=== PATIENT | male | born 1965 | race Caucasian/White ===

== ENCOUNTER 2017-05-29 19:22 | Emergency (ER) | payer OTHER ==
[2017-05-29 20:35] VITALS: BP 149/84
--- NOTE | 2017-05-29 20:49 | UC ---
Complaint Female HPI - HPI Summary HPI Summary: Patient acompanied by his , states he started having burning urination and frequency around 5:30 today. He has chills and his temperature was elevated at home. He denies any penile discharge, abdominal or back pain, PMH of urolithiasis or respiratory symptoms. - History Of Current Complaint Chief Complaint: UCGeneralIllness Stated Complaint: URINARY COMPLAINT,ACHEY Time Seen by Provider: 05/29/17 20:19 Hx Obtained From: Patient Onset/Duration: Sudden Onset, Lasting Hours Timing: Constant Severity Initially: Mild Severity Currently: Moderate Pain Intensity: 2 Character: Burning Aggravating Factor(s): Urination Alleviating Factor(s): Nothing Associated Signs And Symptoms: Positive: Fever - Allergies/Home Medications Allergies/Adverse Reactions: Allergies Allergy/AdvReac Type Severity Reaction Status Date / Time dicyclomine Allergy Dizziness Verified 05/29/17 19:35 Home Medications: Home Medications Cetirizine* [ZyrTEC 10 MG TAB*] 05/29/17 [History] Ibuprofen [Advil] 600 mg PO 05/29/17 [History] PMH/Surg Hx/FS Hx/Imm Hx Previously Healthy: Yes - Surgical History Surgical History: None - Social History Alcohol Use: Weekly Substance Use Type: None Smoking Status (MU): Never Smoked Tobacco Review of Systems Constitutional: Fever Genitourinary: Dysuria All Other Systems Reviewed And Are Negative: Yes Physical Exam Triage Information Reviewed: Yes Appearance: Pain Distress Vital Signs: Initial Vital Signs Temp 99.4 F 05/29/17 19:27 Pulse 80 05/29/17 19:27 Resp 16 05/29/17 19:27 BP 155/104 05/29/17 19:27 Pulse Ox 100 05/29/17 19:27 Vital Signs Reviewed: Yes Eyes: Positive: Conjunctiva Clear ENT: Positive: Pharynx normal Neck: Positive: Supple, Nontender, No Lymphadenopathy Respiratory: Positive: Chest non-tender, Lungs clear, Normal breath sounds, No respiratory distress Cardiovascular: Positive: RRR, No Murmur, Pulses Normal, Brisk Capillary Refill Abdomen Description: Positive: Nontender, No Organomegaly, Soft, Other: - no CVAT Bowel Sounds: Positive: Present Musculoskeletal: Positive: Strength Intact, ROM Intact Complaint Female Dx - Course Course Of Treatment: Patient with chills and mounting temperature, complaining of burning urination and frequency. Patient referred to ER for further evaluation possible DDx of upper UTI, urolithiasis. Discussed with patient who states he wants to be driven to ER by - Differential Dx/Diagnosis Provider Diagnoses: Dysuria. Fever Discharge - Sign-Out/Discharge Documenting (check all that apply): Discharge - Discharge Plan Condition: Guarded Disposition: HOME Patient Education Materials: Dysuria (ED), Fever in Adults (ED) Referrals: Cuong Spence MD [Primary Care Provider] - Additional Instructions: Patient instructed to go to [facility] for follow up care, patient refuses to go by ambulance and states he will drive himself to the ER. - Billing Disposition and Condition Condition: GUARDED Disposition: HOME
== END 2017-05-29 21:10 | disposition home or self-care (01) ==
LOC: UCEAST 19:22
DX: R30.0 Dysuria (principal); R50.9 Fever, unspecified; Z88.8 Allergy status to other drugs, medicaments and biological substances
CPT/HCPCS: 81003; 99212; G0463

== ENCOUNTER 2017-05-29 21:41 | Emergency (ER) | payer OTHER ==
[2017-05-29] MEDS ORDERED: NS 0.9% 1000 ML*IV.FLUID IV ONE (22:22)
[2017-05-29 22:57] LABS: ABS Basophils 0 10^3/ul (0-0.2); ABS Eosinophils 0.2 10^3/ul (0-0.6); ABS Lymphocytes 1.3 10^3/ul (1.0-4.8); ABS Monocytes 0.9 10^3/ul (0-0.8); ABS Neutrophils 6.3 10^3/ul (1.5-7.7); ABS Nucleated RBC 0 10^3/ul; Eosinophil % 1.8 % (0-6); Hematocrit 41 % (42-52); Hemoglobin 14.2 g/dl (14.0-18.0); Lymphocyte % 15.1 % (25-47); Mean Corpuscular HGB Conc 35 g/dl (31-36); Mean Corpuscular Hemoglobin 31 pg (27-31); Mean Corpuscular Volume 88 fL (80-94); Mean Platelet Volume 7.6 um3 (7.4-10.4); Nucleated Red Blood Cells % 0; Platelet Count 193 10^3/ul (150-450); Red Blood Count 4.64 10^6/ul (4.0-5.4); Red Cell Distribution Width 13 % (10.5-15); White Blood Count 8.6 10^3/ul (3.5-10.8)
[2017-05-29 23:02] LABS: INR 0.9 (0.77-1.02)
[2017-05-29 23:12] LABS: Urine Appearance Clear; Urine Blood Negative (Negative); Urine Color Straw; Urine Ketones Negative (Negative); Urine Protein Negative (Negative); Urine Specific Gravity 1.005 (1.010-1.030); Urine Urobilinogen Negative (Negative)
[2017-05-29 23:13] LABS: EGFR Non-African American 84.6 (>60)
[2017-05-30] MEDS ORDERED: Lidocaine 2% JELLY* 6 ML JELLY TOPICAL ONE (01:15)
[2017-05-30] MEDS ORDERED: Ciprofloxacin TAB* 500 MG PO ONE (01:18)
--- NOTE | 2017-05-30 02:22 | ED ---
Complaint/Male - History of Current Complaint Chief Complaint: EDUrogenitalProblems Time Seen by Provider: 05/29/17 23:13 Hx Obtained From: Patient Onset/Duration: Sudden Onset Timing: Constant Severity Initially: Moderate Severity Currently: Moderate Location: Suprapubic Character: Sharp Aggravating Factor(s): Voiding, Palpation Associated Signs And Symptoms: Diaphoresis, Fever - Risk Factors Testicular Torsion: Negative - Allergies/Home Medications Allergies/Adverse Reactions: Allergies Allergy/AdvReac Type Severity Reaction Status Date / Time dicyclomine Allergy Dizziness Verified 05/29/17 22:11 Home Medications: Home Medications Cholecalciferol TAB* [Vitamin D TAB*] 1,000 unit PO DAILY 05/29/17 [History Confirmed 05/29/17] Ibuprofen TAB* [Motrin TAB* 600 MG] 600 mg PO TID PRN 05/29/17 [History Confirmed 05/29/17] L.acidoph,Paracasei, B.lactis [Probiotic] 1 each PO DAILY 05/29/17 [History Confirmed 05/29/17] Multivitamins/Minerals TAB* [Theragran/minerals TAB*] 1 tab PO DAILY 05/29/17 [ History Confirmed 05/29/17] PMH/Surg Hx/FS Hx/Imm Hx Previously Healthy: Yes Musculoskeletal History: Denies: Hx Rheumatoid Arthritis, Hx Osteoporosis - Immunization History Date of Tetanus Vaccine: 2009 Date of Influenza Vaccine: utd Infectious Disease History: No Infectious Disease History: Reports: Traveled Outside the [place] in Last 30 Days - Social History Occupation: Employed Full-time Lives: With Family Alcohol Use: Weekly Substance Use Type: Reports: None Smoking Status (MU): Never Smoked Tobacco Review Of Systems Constitutional: Positive: Fever, Chills Physical Exam Vital Signs On Initial Exam: Initial Vitals Temp Pulse Resp BP Pulse Ox 98.3 F 86 16 143/84 98 05/29/17 21:50 05/29/17 21:50 05/29/17 21:50 05/29/17 21:50 05/29/17 21:50 Diagnostics - Vital Signs Vital Signs Temp Pulse Resp BP Pulse Ox 05/29/17 21:50 98.3 F 86 16 143/84 98 - Laboratory Lab Results: Lab Results 05/29/17 05/29/17 05/29/17 Range/Units 22:15 22:44 22:44 WBC 8.6 (3.5-10.8) 10^3/ul RBC 4.64 (4.0-5.4) 10^6/ul Hgb 14.2 (14.0-18.0) g/dl Hct 41 L (42-52) % MCV 88 (80-94) fL MCH 31 (27-31) pg MCHC 35 (31-36) g/dl RDW 13 (10.5-15) % Plt Count 193 (150-450) 10^3/ul MPV 7.6 (7.4-10.4) um3 Neut % (Auto) 72.5 (38-83) % Lymph % (Auto) 15.1 L (25-47) % [place] % (Auto) 10.0 H (0-7) % Eos % (Auto) 1.8 (0-6) % Baso % (Auto) 0.6 (0-2) % Absolute Neuts (auto) 6.3 (1.5-7.7) 10^3/ul Absolute Lymphs (auto) 1.3 (1.0-4.8) 10^3/ul Absolute Monos (auto) 0.9 H (0-0.8) 10^3/ul Absolute Eos (auto) 0.2 (0-0.6) 10^3/ul Absolute Basos (auto) 0 (0-0.2) 10^3/ul Absolute Nucleated RBC 0 10^3/ul Nucleated RBC % 0 INR (Anticoag Therapy) (0.77-1.02) Sodium 135 L (139-145) mmol/L Potassium 4.1 (3.5-5.0) mmol/L Chloride 100 L (101-111) mmol/L Carbon Dioxide 26 (22-32) mmol/L Anion Gap 9 (2-11) mmol/L BUN 12 (6-24) mg/dL Creatinine 0.94 (0.67-1.17) mg/dL Est GFR ( Amer) 108.8 (>60) Est GFR (Non-Af Amer) 84.6 (>60) BUN/Creatinine Ratio 12.8 (8-20) Glucose 112 H (70-100) mg/dL Lactic Acid (0.5-2.0) mmol/L Calcium 9.4 (8.6-10.3) mg/dL Total Bilirubin 0.50 (0.2-1.0) mg/dL AST 24 (13-39) U/L ALT 20 (7-52) U/L Alkaline Phosphatase 58 (34-104) U/L Troponin I 0.01 (<0.04) ng/mL C-Reactive Protein 12.42 H (< 5.00) mg/L Total Protein 7.3 (6.4-8.9) g/dL Albumin 4.2 (3.2-5.2) g/dL Globulin 3.1 (2-4) g/dL Albumin/Globulin Ratio 1.4 (1-3) Urine Color Straw Urine Appearance Clear Urine pH 7.0 (5-9) Ur Specific [place] 1.005 L (1.010-1.030) Urine Protein Negative (Negative) Urine Ketones Negative (Negative) Urine Blood Negative (Negative) Urine Nitrate Negative (Negative) Urine Bilirubin Negative (Negative) Urine Urobilinogen Negative (Negative) Ur Leukocyte Esterase Negative (Negative) Urine Glucose Negative (Negative) Urine Ascorbic Acid * A (Negative) 05/29/17 05/29/17 Range/Units 22:44 22:44 WBC (3.5-10.8) 10^3/ul RBC (4.0-5.4) 10^6/ul Hgb (14.0-18.0) g/dl Hct (42-52) % MCV (80-94) fL MCH (27-31) pg MCHC (31-36) g/dl RDW (10.5-15) % Plt Count (150-450) 10^3/ul MPV (7.4-10.4) um3 Neut % (Auto) (38-83) % Lymph % (Auto) (25-47) % [place] % (Auto) (0-7) % Eos % (Auto) (0-6) % Baso % (Auto) (0-2) % Absolute Neuts (auto) (1.5-7.7) 10^3/ul Absolute Lymphs (auto) (1.0-4.8) 10^3/ul Absolute Monos (auto) (0-0.8) 10^3/ul Absolute Eos (auto) (0-0.6) 10^3/ul Absolute Basos (auto) (0-0.2) 10^3/ul Absolute Nucleated RBC 10^3/ul Nucleated RBC % INR (Anticoag Therapy) 0.90 (0.77-1.02) Sodium (139-145) mmol/L Potassium (3.5-5.0) mmol/L Chloride (101-111) mmol/L Carbon Dioxide (22-32) mmol/L Anion Gap (2-11) mmol/L BUN (6-24) mg/dL Creatinine (0.67-1.17) mg/dL Est GFR ( Amer) (>60) Est GFR (Non-Af Amer) (>60) BUN/Creatinine Ratio (8-20) Glucose (70-100) mg/dL Lactic Acid 0.8 (0.5-2.0) mmol/L Calcium (8.6-10.3) mg/dL Total Bilirubin (0.2-1.0) mg/dL AST (13-39) U/L ALT (7-52) U/L Alkaline Phosphatase (34-104) U/L Troponin I (<0.04) ng/mL C-Reactive Protein (< 5.00) mg/L Total Protein (6.4-8.9) g/dL Albumin (3.2-5.2) g/dL Globulin (2-4) g/dL Albumin/Globulin Ratio (1-3) Urine Color Urine Appearance Urine pH (5-9) Ur Specific [place] (1.010-1.030) Urine Protein (Negative) Urine Ketones (Negative) Urine Blood (Negative) Urine Nitrate (Negative) Urine Bilirubin (Negative) Urine Urobilinogen (Negative) Ur Leukocyte Esterase (Negative) Urine Glucose (Negative) Urine Ascorbic Acid (Negative) Result Diagrams: 05/29/17 22:44 05/29/17 22:44 Lab Statement: Any lab studies that have been ordered have been reviewed, and results considered in the medical decision making process.
--- NOTE | 2017-05-30 02:28 | ED ---
Complex/Multi-Sys Presentation - HPI Summary HPI Summary: Pt. is a 52 y.o male who presents to the ER for urinary retention x 2 days. Pt. states he has a history of enlarge prostate and occasionally has difficulty starting a stream but not recently until yesterday. He also notes that today he feels chilled. States he had recent URI symptoms but they have resolved. Denies hematuria, flank pain, N/V, rectal pain. Symptoms are moderate in severity. No current modifying factors. - History Of Current Complaint Chief Complaint: EDUrogenitalProblems Time Seen by Provider: 05/29/17 23:13 Hx Obtained From: Patient Onset/Duration: Sudden Onset Timing: Constant Severity Currently: Moderate Severity Initially: Moderate Character: Pressure Associated Signs And Symptoms: Negative: Nausea, Vomiting, Diarrhea, Back Pain, Dysuria - Allergies/Home Medications Allergies/Adverse Reactions: Allergies Allergy/AdvReac Type Severity Reaction Status Date / Time dicyclomine Allergy Dizziness Verified 05/29/17 22:11 Home Medications: Home Medications Cholecalciferol TAB* [Vitamin D TAB*] 1,000 unit PO DAILY 05/29/17 [History Confirmed 05/29/17] Ibuprofen TAB* [Motrin TAB* 600 MG] 600 mg PO TID PRN 05/29/17 [History Confirmed 05/29/17] L.acidoph,Paracasei, B.lactis [Probiotic] 1 each PO DAILY 05/29/17 [History Confirmed 05/29/17] Multivitamins/Minerals TAB* [Theragran/minerals TAB*] 1 tab PO DAILY 05/29/17 [ History Confirmed 05/29/17] PMH/Surg Hx/FS Hx/Imm Hx Previously Healthy: Yes Musculoskeletal History: Denies: Hx Rheumatoid Arthritis, Hx Osteoporosis - Immunization History Date of Tetanus Vaccine: 2009 Date of Influenza Vaccine: utd Infectious Disease History: No Infectious Disease History: Reports: Traveled Outside the [place] in Last 30 Days - Social History Occupation: Employed Full-time Lives: With Family Alcohol Use: Weekly Substance Use Type: Reports: None Smoking Status (MU): Never Smoked Tobacco Review of Systems Positive: Chills, Skin Diaphoresis Eyes: Negative ENT: Negative Cardiovascular: Negative Respiratory: Negative Negative: Abdominal Pain, Vomiting, Diarrhea, Nausea Positive: other - retention Musculoskeletal: Negative Neurological: Negative All Other Systems Reviewed And Are Negative: Yes Physical Exam Triage Information Reviewed: Yes Vital Signs On Initial Exam: Initial Vitals Temp Pulse Resp BP Pulse Ox 98.3 F 86 16 143/84 98 05/29/17 21:50 05/29/17 21:50 05/29/17 21:50 05/29/17 21:50 05/29/17 21:50 Vital Signs Reviewed: Yes Appearance: Positive: Well-Appearing - Pt. lying in bed in NAD. present. Skin: Positive: Warm, Dry Head/Face: Positive: Normal Head/Face Inspection Eyes: Positive: Normal, FREDY Respiratory/Lung Sounds: Positive: Clear to Auscultation, Breath Sounds Present Cardiovascular: Positive: Normal, RRR Abdomen Description: Positive: Other: - Abd. is soft with mild diffuse tenderness. No rebound tenderness or guarding. Musculoskeletal: Positive: Normal Neurological: Positive: Normal, CN Intact II-III Psychiatric: Positive: Normal Diagnostics - Vital Signs Vital Signs Temp Pulse Resp BP Pulse Ox 05/29/17 21:50 98.3 F 86 16 143/84 98 - Laboratory Lab Results: Lab Results 05/29/17 05/29/17 05/29/17 Range/Units 22:15 22:44 22:44 WBC 8.6 (3.5-10.8) 10^3/ul RBC 4.64 (4.0-5.4) 10^6/ul Hgb 14.2 (14.0-18.0) g/dl Hct 41 L (42-52) % MCV 88 (80-94) fL MCH 31 (27-31) pg MCHC 35 (31-36) g/dl RDW 13 (10.5-15) % Plt Count 193 (150-450) 10^3/ul MPV 7.6 (7.4-10.4) um3 Neut % (Auto) 72.5 (38-83) % Lymph % (Auto) 15.1 L (25-47) % [place] % (Auto) 10.0 H (0-7) % Eos % (Auto) 1.8 (0-6) % Baso % (Auto) 0.6 (0-2) % Absolute Neuts (auto) 6.3 (1.5-7.7) 10^3/ul Absolute Lymphs (auto) 1.3 (1.0-4.8) 10^3/ul Absolute Monos (auto) 0.9 H (0-0.8) 10^3/ul Absolute Eos (auto) 0.2 (0-0.6) 10^3/ul Absolute Basos (auto) 0 (0-0.2) 10^3/ul Absolute Nucleated RBC 0 10^3/ul Nucleated RBC % 0 INR (Anticoag Therapy) (0.77-1.02) Sodium 135 L (139-145) mmol/L Potassium 4.1 (3.5-5.0) mmol/L Chloride 100 L (101-111) mmol/L Carbon Dioxide 26 (22-32) mmol/L Anion Gap 9 (2-11) mmol/L BUN 12 (6-24) mg/dL Creatinine 0.94 (0.67-1.17) mg/dL Est GFR ( Amer) 108.8 (>60) Est GFR (Non-Af Amer) 84.6 (>60) BUN/Creatinine Ratio 12.8 (8-20) Glucose 112 H (70-100) mg/dL Lactic Acid (0.5-2.0) mmol/L Calcium 9.4 (8.6-10.3) mg/dL Total Bilirubin 0.50 (0.2-1.0) mg/dL AST 24 (13-39) U/L ALT 20 (7-52) U/L Alkaline Phosphatase 58 (34-104) U/L Troponin I 0.01 (<0.04) ng/mL C-Reactive Protein 12.42 H (< 5.00) mg/L Total Protein 7.3 (6.4-8.9) g/dL Albumin 4.2 (3.2-5.2) g/dL Globulin 3.1 (2-4) g/dL Albumin/Globulin Ratio 1.4 (1-3) Urine Color Straw Urine Appearance Clear Urine pH 7.0 (5-9) Ur Specific [place] 1.005 L (1.010-1.030) Urine Protein Negative (Negative) Urine Ketones Negative (Negative) Urine Blood Negative (Negative) Urine Nitrate Negative (Negative) Urine Bilirubin Negative (Negative) Urine Urobilinogen Negative (Negative) Ur Leukocyte Esterase Negative (Negative) Urine Glucose Negative (Negative) Urine Ascorbic Acid * A (Negative) 04/13/18 04/13/18 Range/Units 22:44 22:44 WBC (3.5-10.8) 10^3/ul RBC (4.0-5.4) 10^6/ul Hgb (14.0-18.0) g/dl Hct (42-52) % MCV (80-94) fL MCH (27-31) pg MCHC (31-36) g/dl RDW (10.5-15) % Plt Count (150-450) 10^3/ul MPV (7.4-10.4) um3 Neut % (Auto) (38-83) % Lymph % (Auto) (25-47) % [place] % (Auto) (0-7) % Eos % (Auto) (0-6) % Baso % (Auto) (0-2) % Absolute Neuts (auto) (1.5-7.7) 10^3/ul Absolute Lymphs (auto) (1.0-4.8) 10^3/ul Absolute Monos (auto) (0-0.8) 10^3/ul Absolute Eos (auto) (0-0.6) 10^3/ul Absolute Basos (auto) (0-0.2) 10^3/ul Absolute Nucleated RBC 10^3/ul Nucleated RBC % INR (Anticoag Therapy) 0.90 (0.77-1.02) Sodium (139-145) mmol/L Potassium (3.5-5.0) mmol/L Chloride (101-111) mmol/L Carbon Dioxide (22-32) mmol/L Anion Gap (2-11) mmol/L BUN (6-24) mg/dL Creatinine (0.67-1.17) mg/dL Est GFR ( Amer) (>60) Est GFR (Non-Af Amer) (>60) BUN/Creatinine Ratio (8-20) Glucose (70-100) mg/dL Lactic Acid 0.8 (0.5-2.0) mmol/L Calcium (8.6-10.3) mg/dL Total Bilirubin (0.2-1.0) mg/dL AST (13-39) U/L ALT (7-52) U/L Alkaline Phosphatase (34-104) U/L Troponin I (<0.04) ng/mL C-Reactive Protein (< 5.00) mg/L Total Protein (6.4-8.9) g/dL Albumin (3.2-5.2) g/dL Globulin (2-4) g/dL Albumin/Globulin Ratio (1-3) Urine Color Urine Appearance Urine pH (5-9) Ur Specific [place] (1.010-1.030) Urine Protein (Negative) Urine Ketones (Negative) Urine Blood (Negative) Urine Nitrate (Negative) Urine Bilirubin (Negative) Urine Urobilinogen (Negative) Ur Leukocyte Esterase (Negative) Urine Glucose (Negative) Urine Ascorbic Acid (Negative) Result Diagrams: 05/29/17 22:44 05/29/17 22:44 Lab Statement: Any lab studies that have been ordered have been reviewed, and results considered in the medical decision making process. Complex Multi-Symp Course/Dx Course Of Treatment: Pt. presenting for subjective fevers and urinary retention. Work up was ordered in triage including labs, u/a, CXR, ECG. Labs are unremarkable. U/A is negative for infection. Bladder scan shows around 600cc. Pt. then voided and roughly half of volume remained. Lopez catheter was placed later and drained about 1L. Pt. was examined by Dr. Qiu as well who feels pt. most likely as prostatitis as symptoms came on acutely. Will cover with Cipro. Pt. is already established with Dr. Noland, urology, to call on Thursday for an apt. Leg bagged place. Pt. to return to ER if symptoms change or worsen. - Diagnoses Differential Diagnoses/HQI/PQRI: Urinary Tract Infection Provider Diagnoses: Prostatitis, Urinary retention Discharge - Sign-Out/Discharge Documenting (check all that apply): Discharge - Discharge Plan Condition: Good Disposition: HOME Prescriptions: Ciprofloxacin TAB* [Cipro 500 MG TAB*] 500 mg PO BID 21 Days #42 tab Patient Education Materials: Prostatitis (ED), Urinary Retention in Men (ED), Lopez Catheter Placement and Care (ED) Referrals: Cuong Spence MD [Primary Care Provider] - Dante Noland MD [Medical Doctor] - Additional Instructions: Call Dr. Noland's office Thursday morning for an appointment Take antibiotic as directed Return to ER if symptoms change or worsen - Billing Disposition and Condition Condition: GOOD Disposition: HOME
[2017-05-30] MEDS ORDERED: Tamsulosin CAP* 0.4 MG PO ONE (03:10)
[2017-05-30 03:21] VITALS: BP 134/89
--- NOTE | 2017-05-30 05:00 | ED ---
Progress - Progress Note Progress Note: I supervised the care of the PA and I performed a hx/PE on this patient. Hx: Fever, inability to void. No recent hx of prostate issues though had been tried on flomax years ago (unknown cause). PE: Distended bladder and tender suprapubic area. No diaphoresis. Plan: will cover for prostatis as a cause. Start abx and flomax. Lopez with leg bag placed for retention. Refer to Uro. Course/Dx - Course Course Of Treatment: Pt. presenting for subjective fevers and urinary retention. Work up was ordered in triage including labs, u/a, CXR, ECG. Labs are unremarkable. U/A is negative for infection. Bladder scan shows around 600cc. Pt. then voided and roughly half of volume remained. Lopez catheter was placed later and drained about 1L. Pt. was examined by Dr. Qiu as well who feels pt. most likely as prostatitis as symptoms came on acutely. Will cover with Cipro. Pt. is already established with Dr. Noland, urology, to call on Thursday for an apt. Leg bagged place. Pt. to return to ER if symptoms change or worsen. - Diagnoses Provider Diagnoses: Prostatitis, Urinary retention Discharge - Sign-Out/Discharge Documenting (check all that apply): Discharge - Discharge Plan Condition: Good Disposition: HOME Prescriptions: Ciprofloxacin TAB* [Cipro 500 MG TAB*] 500 mg PO BID 21 Days #42 tab Tamsulosin CAP* [Flomax CAP*] 0.4 mg PO BEDTIME #30 cap Patient Education Materials: Prostatitis (ED), Urinary Retention in Men (ED), Lopez Catheter Placement and Care (ED) Referrals: Cuong Spence MD [Primary Care Provider] - Dante Noland MD [Medical Doctor] - Additional Instructions: Call Dr. Noland's office Thursday morning for an appointment Take antibiotic as directed Return to ER if symptoms change or worsen - Billing Disposition and Condition Condition: GOOD Disposition: HOME
--- NOTE | 2017-05-30 09:39 | RAD ---
INDICATION: Fever and rigors COMPARISON: None. TECHNIQUE: Single AP portable view of the chest was obtained. FINDINGS: Image quality is compromised due to the relative inferiority of a portable chest x-ray. The heart and mediastinum exhibit normal size and contour. The lungs are grossly clear. There is no evidence of a large pleural effusion. Visualized bones are normal for the patient's age. IMPRESSION: No radiographic evidence for acute cardiopulmonary abnormality on this portable chest x-ray.
== END 2017-05-30 03:00 | disposition home or self-care (01) ==
LOC: ED 21:41
DX: N41.9 Inflammatory disease of prostate, unspecified (principal); R33.9 Retention of urine, unspecified
CPT/HCPCS: 36415; 71045; 80053; 81003; 83605; 84484; 85025; 85610; 86140; 87040; 93005; 96360; 99284; A9270-GY